=== PATIENT | male | born 1945 | race Two or more races ===

== ENCOUNTER 2019-07-09 11:10 | Inpatient (IN) | payer OTHER ==
[~2019-07-09] VITALS: Ht 175.3 cm; Wt 76.2 kg
[~2019-07-09 11:10] MED LIST: ASA325 MG; HYZAAR 100/25 T1 TAB; LIPITOR20 MG; NORVASC5 MG; NORVASC5 MG PO; VASOTEC20 M1 PO; XARELTO20 MG PO
[2019-08-02] MEDS ORDERED: VASOTEC20 M1 PO (08:11)
[2019-08-02] MEDS ORDERED: JENTADUETO XR1 EACH PO (08:12)
[2019-08-02] MEDS ORDERED: XARELTO20 MG PO (08:13)
[2019-08-02] MEDS ORDERED: LIPITOR40 MG (08:55)
[2019-08-07] MEDS ORDERED: FENOFIBRATE134 MG PO (10:26)
[2019-08-10] MEDS ORDERED: DUI500 PO (08:45)
[2019-08-10] MEDS ORDERED: ELIQUIS2.5 MG PO (08:45)
[2019-08-10] MEDS ORDERED: PERCOCET 5-3251 EACH PO (08:45)
== END 2019-08-10 17:17 | DRG 470 ==
LOC: SURH 08-07 06:48 → O/R 08-07 06:48 → SURG 08-07 07:00 → SURH 08-07 21:33
PROVIDERS: ADMIT Orthopaedic Surgery
PROC: 0MNP0ZZ Release Left Knee Bursa and Ligament, Open Approach (ICD-10-PCS; 2019-08-07)
PROC: 0SRD0J9 Replacement of Left Knee Joint with Synthetic Substitute, Cemented, Open Approach (ICD-10-PCS; principal; 2019-08-07 07:00)
DX: M17.12 Unilateral primary osteoarthritis, left knee (principal); D62 Acute posthemorrhagic anemia; M22.12 Recurrent subluxation of patella, left knee; I11.9 Hypertensive heart disease without heart failure; D50.8 Other iron deficiency anemias; E11.22 Type 2 diabetes mellitus with diabetic chronic kidney disease; I12.9 Hypertensive chronic kidney disease with stage 1 through stage 4 chronic kidney disease, or unspecified chronic kidney disease; N18.2 Chronic kidney disease, stage 2 (mild); Z79.4 Long term (current) use of insulin

== ENCOUNTER 2019-07-26 14:34 | Outpatient (CLI) | payer OTHER | END 2019-07-26 14:36 | disposition home or self-care (01) | LOC: RAD 14:34 | DX: R07.89 Other chest pain (principal) ==

== ENCOUNTER 2019-11-07 07:23 | Outpatient (CLI) | payer OTHER ==
[~2019-11-07 07:23] MED LIST changes: +DUI500 PO; +ELIQUIS2.5 MG PO; +FENOFIBRATE134 MG PO; +JENTADUETO XR1 EACH PO; +LIPITOR40 MG; +PERCOCET 5-3251 EACH PO
== END 2019-11-07 07:28 | disposition home or self-care (01) ==
LOC: TOM 07:23
PROVIDERS: ATTEND Internal Medicine
DX: R10.84 Generalized abdominal pain (principal)

== ENCOUNTER 2019-11-19 07:24 | Outpatient (CLI) | payer OTHER | END 2019-11-19 07:30 | disposition home or self-care (01) | LOC: TOM 07:24 | PROVIDERS: ATTEND Internal Medicine Nephrology | DX: N28.89 Other specified disorders of kidney and ureter (principal); C64.9 Malignant neoplasm of unspecified kidney, except renal pelvis | CPT/HCPCS: 74177; Q9965 ==

== ENCOUNTER 2020-06-10 08:49 | Outpatient (CLI) | payer OTHER | END 2020-06-10 08:59 | disposition home or self-care (01) | LOC: SONOGRAMA 08:49 → MAMO-SONO 09:15 | PROVIDERS: ATTEND Urology | DX: Q61.02 Congenital multiple renal cysts (principal) ==

== ENCOUNTER 2020-12-12 14:15 | Outpatient (CLI) | payer OTHER | END 2020-12-12 14:20 | disposition home or self-care (01) | LOC: MAMO-SONO 14:15 | PROVIDERS: ATTEND Urology | DX: N20.0 Calculus of kidney (principal); C64.1 Malignant neoplasm of right kidney, except renal pelvis ==

== ENCOUNTER 2021-03-16 09:48 | Emergency (ER) | payer OTHER ==
[~2021-03-16] VITALS: Ht 175.3 cm; Wt 81.6 kg
== END 2021-03-16 13:39 | disposition home or self-care (01) ==
LOC: ER 09:48
DX: R10.32 Left lower quadrant pain (principal)

== ENCOUNTER 2021-05-14 06:48 | Day surgery (SDC) | payer OTHER ==
[2021-05-14] MEDS ORDERED: MIRALAX17 GM PO (11:51)
[2021-05-14] MEDS ORDERED: ACETAMINOPHEN-1 EAC2 PO (11:51)
== END 2021-05-14 20:00 | disposition home or self-care (01) ==
LOC: CIR.AMB 06:48
PROVIDERS: ATTEND Surgery
DX: K40.30 Unilateral inguinal hernia, with obstruction, without gangrene, not specified as recurrent (principal); Z20.822 Contact with and (suspected) exposure to COVID-19

== ENCOUNTER 2021-06-06 12:55 | Inpatient (IN) | payer OTHER ==
[~2021-06-06] VITALS: Ht 175.3 cm; Wt 63.5 kg
[~2021-06-06 12:55] MED LIST changes: +ACETAMINOPHEN-1 EAC2 PO; +MIRALAX17 GM PO
[2021-06-08] MEDS ORDERED: REFRESH OPTIVE10 ML (08:33)
[2021-06-08] MEDS ORDERED: ADVIL200 MG (08:33)
[2021-06-08] MEDS ORDERED: CENTRUM SILVER1 EAC4 (08:33)
[2021-06-08] MEDS ORDERED: PEPTO-BISM262 MG/15 (08:33)
[2021-06-08] MEDS ORDERED: VITAMIN C500 M1 (08:34)
[2021-06-08] MEDS ORDERED: VITAMIN B122500 MCG (08:34)
[2021-06-14] MEDS ORDERED: PEPCID AC20 MG PO (14:58)
[2021-06-14] MEDS ORDERED: PANTOPRAZOLE SO40 M2 PO (14:58)
== END 2021-06-17 06:37 | disposition home or self-care (01) | DRG 812 ==
LOC: ER 12:55 → MEDI 16:11
PROVIDERS: ADMIT Internal Medicine; ATTEND Internal Medicine
PROC: 4A12X4Z Monitoring of Cardiac Electrical Activity, External Approach (ICD-10-PCS; 2021-06-06)
PROC: 3E0F7SF Introduction of Other Gas into Respiratory Tract, Via Natural or Artificial Opening (ICD-10-PCS; 2021-06-06)
PROC: 30233N1 Transfusion of Nonautologous Red Blood Cells into Peripheral Vein, Percutaneous Approach (ICD-10-PCS; principal; 2021-06-07)
PROC: 0DB98ZX Excision of Duodenum, Via Natural or Artificial Opening Endoscopic, Diagnostic (ICD-10-PCS; 2021-06-10)
PROC: 0DB68ZX Excision of Stomach, Via Natural or Artificial Opening Endoscopic, Diagnostic (ICD-10-PCS; 2021-06-10)
DX: D62 Acute posthemorrhagic anemia (principal); N17.8 Other acute kidney failure; K92.1 Melena; N13.8 Other obstructive and reflux uropathy; I12.9 Hypertensive chronic kidney disease with stage 1 through stage 4 chronic kidney disease, or unspecified chronic kidney disease; E11.22 Type 2 diabetes mellitus with diabetic chronic kidney disease; N18.9 Chronic kidney disease, unspecified; D63.1 Anemia in chronic kidney disease; E87.5 Hyperkalemia; K44.9 Diaphragmatic hernia without obstruction or gangrene; K26.9 Duodenal ulcer, unspecified as acute or chronic, without hemorrhage or perforation; K29.80 Duodenitis without bleeding; K20.80 Other esophagitis without bleeding; K29.00 Acute gastritis without bleeding; E78.49 Other hyperlipidemia; I48.91 Unspecified atrial fibrillation; Z79.4 Long term (current) use of insulin; Z95.0 Presence of cardiac pacemaker; R33.8 Other retention of urine; Z20.822 Contact with and (suspected) exposure to COVID-19

== ENCOUNTER 2021-07-09 17:47 | Inpatient (IN) | payer OTHER ==
[~2021-07-09] VITALS: Ht 167.6 cm; Wt 68.0 kg
[~2021-07-09 17:47] MED LIST changes: +ADVIL200 MG; +CENTRUM SILVER1 EAC4; +PANTOPRAZOLE SO40 M2 PO; +PEPCID AC20 MG PO; +PEPTO-BISM262 MG/15; +REFRESH OPTIVE10 ML; +VITAMIN B122500 MCG; +VITAMIN C500 M1
[2021-07-22] MEDS ORDERED: INTESTINEX680 M1 (02:08)
[2021-07-22] MEDS ORDERED: LOPRESSOR25 MG (02:09)
[2021-07-22] MEDS ORDERED: SEROQUEL50 MG (02:10)
[2021-07-22] MEDS ORDERED: DUI500 PO (06:24)
== END 2021-07-21 15:02 | disposition home or self-care (01) | DRG 683 ==
LOC: ER 17:47 → ICU-2 20:30 → SURH 20:30
PROVIDERS: ADMIT Internal Medicine; ATTEND Internal Medicine
PROC: 4A12X4Z Monitoring of Cardiac Electrical Activity, External Approach (ICD-10-PCS; principal; 2021-07-13)
DX: N17.8 Other acute kidney failure (principal); I48.20 Chronic atrial fibrillation, unspecified; N13.8 Other obstructive and reflux uropathy; N39.0 Urinary tract infection, site not specified; Z16.12 Extended spectrum beta lactamase (ESBL) resistance; E87.0 Hyperosmolality and hypernatremia; L89.159 Pressure ulcer of sacral region, unspecified stage; D63.1 Anemia in chronic kidney disease; B95.61 Methicillin susceptible Staphylococcus aureus infection as the cause of diseases classified elsewhere; L08.9 Local infection of the skin and subcutaneous tissue, unspecified; B96.20 Unspecified Escherichia coli [E. coli] as the cause of diseases classified elsewhere; B95.2 Enterococcus as the cause of diseases classified elsewhere; E87.8 Other disorders of electrolyte and fluid balance, not elsewhere classified; I11.0 Hypertensive heart disease with heart failure; N40.0 Benign prostatic hyperplasia without lower urinary tract symptoms; Z79.01 Long term (current) use of anticoagulants; E86.0 Dehydration; I12.9 Hypertensive chronic kidney disease with stage 1 through stage 4 chronic kidney disease, or unspecified chronic kidney disease; E11.22 Type 2 diabetes mellitus with diabetic chronic kidney disease; N18.30 Chronic kidney disease, stage 3 unspecified; B96.29 Other Escherichia coli [E. coli] as the cause of diseases classified elsewhere; F43.20 Adjustment disorder, unspecified; F03.90 Unspecified dementia, unspecified severity, without behavioral disturbance, psychotic disturbance, mood disturbance, and anxiety; Z20.822 Contact with and (suspected) exposure to COVID-19; Z95.1 Presence of aortocoronary bypass graft; Z74.01 Bed confinement status; Z79.4 Long term (current) use of insulin

== ENCOUNTER 2021-07-22 02:01 | Emergency (ER) | payer OTHER ==
[~2021-07-22] VITALS: Ht 175.3 cm; Wt 63.5 kg
[2021-07-22] MEDS ORDERED: INTESTINEX680 M1 (02:08)
[2021-07-22] MEDS ORDERED: LOPRESSOR25 MG (02:09)
[2021-07-22] MEDS ORDERED: SEROQUEL50 MG (02:10)
[2021-07-22] MEDS ORDERED: DUI500 PO (06:24)
== END 2021-07-22 16:04 ==
LOC: ER 02:01
DX: S01.81XA Laceration without foreign body of other part of head, initial encounter (principal); W18.39XA Other fall on same level, initial encounter; Y92.018 Other place in single-family (private) house as the place of occurrence of the external cause; E11.9 Type 2 diabetes mellitus without complications; Z79.84 Long term (current) use of oral hypoglycemic drugs; I10 Essential (primary) hypertension; Z88.8 Allergy status to other drugs, medicaments and biological substances

== ENCOUNTER 2021-08-05 22:24 | Emergency (ER) | payer OTHER ==
[~2021-08-05] VITALS: Ht 167.6 cm; Wt 63.5 kg
[~2021-08-05 22:24] MED LIST changes: +INTESTINEX680 M1; +LOPRESSOR25 MG; +SEROQUEL50 MG
== END 2021-08-06 14:01 | disposition home or self-care (01) ==
LOC: ER 22:24
DX: N39.0 Urinary tract infection, site not specified (principal); B96.20 Unspecified Escherichia coli [E. coli] as the cause of diseases classified elsewhere; D64.9 Anemia, unspecified; E86.0 Dehydration; Z88.6 Allergy status to analgesic agent; Z88.8 Allergy status to other drugs, medicaments and biological substances

== ENCOUNTER 2021-08-14 10:26 | Emergency (ER) | payer OTHER ==
[~2021-08-14] VITALS: Ht 175.3 cm; Wt 72.6 kg
[2021-08-14] MEDS ORDERED: NORVASC10 MG PO (10:40)
[2021-08-14] MEDS ORDERED: LOPRESSOR25 MG PO (10:40)
[2021-08-14] MEDS ORDERED: COZAAR50 MG PO (10:40)
[2021-08-14] MEDS ORDERED: ELIQUIS2.5 MG PO (10:41)
[2021-08-14] MEDS ORDERED: JENTADUETO 2.51 EAC2 PO (10:43)
[2021-08-14] MEDS ORDERED: FENOFIBRATE145 MG PO (10:43)
[2021-08-14] MEDS ORDERED: LIPITOR40 M1 PO (10:44)
[2021-08-14] MEDS ORDERED: REMERON15 MG PO (10:45)
[2021-08-14] MEDS ORDERED: PROSCAR5 MG PO (10:45)
[2021-08-14] MEDS ORDERED: TAMS0.4C PO (10:45)
== END 2021-08-14 13:24 | disposition home or self-care (01) ==
LOC: ER 10:26
DX: T83.098D Other mechanical complication of other urinary catheter, subsequent encounter (principal); E11.9 Type 2 diabetes mellitus without complications; I10 Essential (primary) hypertension; Z88.6 Allergy status to analgesic agent; Z88.8 Allergy status to other drugs, medicaments and biological substances